=== PATIENT | female | born 1970 | race Caucasian/White ===

== ENCOUNTER 2021-04-20 13:18 | Emergency (ER) | payer OTHER ==
[2021-04-20 13:32] VITALS: BP 116/60; PULSE 82; TEMP 97.7; BMI 28.3
[2021-04-20] MEDS ORDERED: LORATADINE 10 MG TABLET PO ONE (14:56)
[2021-04-20] MEDS ORDERED: FAMOTIDINE 20 MG TABLET PO ONE (14:56)
[2021-04-20] MEDS ORDERED: predniSONE 20 MG TABLET (UD) PO ONE (14:56)
[2021-04-20] MEDS ORDERED: predniSONE 20 MG TABLET (UD) ONE (14:58)
[2021-04-20] MEDS ORDERED: FAMOTIDINE 20 MG TABLET ONE (14:58)
[2021-04-20] MEDS ORDERED: LORATADINE 10 MG TABLET ONE (14:58)
== END 2021-04-20 15:06 | disposition home or self-care (01) ==
LOC: JER 13:18 → JERFT 13:18
DX: L29.8 Other pruritus (principal); H05.223 Edema of bilateral orbit; T78.40XA Allergy, unspecified, initial encounter
CPT/HCPCS: 99283-25